=== PATIENT | male | born 1995 | race Caucasian/White ===

== ENCOUNTER 2018-08-26 23:40 | Emergency (ER) | payer OTHER, SELFPAY ==
[2018-08-26 23:49] VITALS: BP 111/68; PULSE 87; RESP 16; TEMP 36.8; O2SAT 95; BMI 19.2
--- NOTE | 2018-08-26 23:56 | DI.RAD.S_ITS ---
PROCEDURE: XR ANKLE RT MIN 3V INDICATIONS: ankle injury TECHNIQUE: 3 views of the ankle were acquired. COMPARISON: None. FINDINGS: Bones: No fractures or dislocations. Ankle mortise is normally aligned. No suspicious bony lesions. Soft tissues: No tibiotalar joint effusion. Achilles tendon appears normal. IMPRESSION: No fracture or dislocation. Dictated by: Juan Antonio Hartley M.D. on 08/27/2018 at 8:30 Approved by: Juan Antonio Hartley M.D. on 08/27/2018 at 8:30
--- NOTE | 2018-08-27 00:25 | ED.LOWEXIN ---
HPI - Extremity Injury (Lower) General Chief Complaint: Extremity Injury, Lower Stated Complaint: right ankle injury Time Seen by Provider: 08/27/18 00:13 Source: patient Mode of arrival: ambulatory (With crutches) Limitations: no limitations History of Present Illness HPI Narrative: The patient is a 23-year-old male who presents with right ankle pain. He said he was playing [employer] when he tripped and fell rolling his ankle. He was not able to weight bear on it has progressively gotten worse. He has crutches with a O2 short for him. He was able move his toes he has no numbness or tingling. MD complaint: ankle injury Review of Systems Review of Systems GENERAL: Denies chills,fever HEENT: Denies throat pain RESPIRATORY: Denies dyspnea, cough, wheezing CARDIOVASCULAR: Denies chest pain, palpitations GASTROINTESTINAL: Denies nausea, vomiting MUSCULOSKELETAL: She HPI SKIN: No rash, no laceration, no pruritus NEUROLOGIC: Denies weakness, dizziness, headache, numbness 8 point review of systems is negative except for those stated above and HPI [facility] Medical History Patient denies significant medical history (Acute) Social History Smoking Status: Never smoker Social History Smoking Status: Never smoker Exam Initial Vital Signs Initial Vital Signs: Vital Signs Temperature 98.3 F 08/26/18 23:49 Pulse Rate 87 08/26/18 23:49 Respiratory Rate 16 08/26/18 23:49 Blood Pressure 111/68 08/26/18 23:49 Pulse Oximetry 95 08/26/18 23:49 GENERAL: Well-appearing, well-nourished and in no acute distress. CARDIOVASCULAR: peripheral pulses in tact, cap refill <2 sec RESPIRATORY: No respiratory distress, speaks in full sentences without difficulty EXTREMITIES: Normal range of motion, no clubbing or edema. Neurovascularly intact -right ankle swollen contusion more swelling lateral distal pedal pulse intact knee is stable foot is stable NEUROLOGICAL: Cranial nerves II through XII grossly intact. Normal gait and speech. SKIN: Warm, dry, no petechiae, no rashes or lesions. Course Orders Ordered: ED Orders 08/26/18 23:56 XR ankle RT min 3V Stat Vital Signs - 8 hr 08/26/18 23:49 08/27/18 00:59 Temperature 98.3 F Pulse Rate 87 63 Respiratory Rate 16 16 Blood Pressure 111/68 112/68 Blood Pressure [Right Arm] 111/68 Pulse Oximetry 95 98 MDM - Extremity Injury (Lower) Imaging Data Right ankle x-ray: Attestation: I personally reviewed and interpreted this imaging study as follows: My impression: No acute fracture Discharge Plan Departure Patient Disposition: Home Clinical Impression: Ankle sprain and strain Discharge Date/Time: 08/27/18 00:59 Interventions: ED Discharge Assessment Last Done: 08/27/18 00:59 Instructions: DI for Ankle Sprain Activity Restrictions/Additional Instructions: *You have been diagnosed with right ankle sprain *What to do: increase activity as tolerated his weight bear as tolerated use crutches as needed ice Linwood wrap, if still having pain and inability to walk in 7-10 days may require repeat x-ray with your PCP *Continue to take medications as directed Motrin 800 mg every 8 hr if needed for pain or swelling *Follow up with your primary care provider in 2-3 days *Return to ER if you should have increasing numbness tingling, weakness or any new, worsening or concerning symptoms Stand Alone Forms: Work Release Note
[2018-08-27 00:59] VITALS: BP 112/68; PULSE 63; RESP 16; O2SAT 98
== END 2018-08-27 00:59 | disposition home or self-care (01) ==
LOC: ED 08-27 01:07
PROVIDERS: Emergency Provider Emergency Medicine
DX: S93.401A Sprain of unspecified ligament of right ankle, initial encounter (principal); W01.0XXA Fall on same level from slipping, tripping and stumbling without subsequent striking against object, initial encounter; Y93.74 Activity, frisbee
CPT/HCPCS: 73610; 99282; 99283